=== PATIENT | female | born 1975 | race Two or more races ===

== ENCOUNTER 2017-05-06 10:34 | Day surgery (SDC) | payer OTHER ==
[2017-05-05 15:12] VITALS: BMI 26.2
[2017-05-06] MEDS ORDERED: PROPOFOL 20 ML ONE ×3 (12:35)
[2017-05-06 14:23] VITALS: TEMP 98
[2017-05-06 14:32] VITALS: PULSE 63
[2017-05-06 14:57] VITALS: BP 105/54
--- NOTE | 2017-05-08 14:38 | PATH ---
Surgical Pathology Report Patient Name: CAM MERCADO [facility]. Rec. #: [id number] /Age/Gender: 1975 (Age: 42) / F Account: [id number] Location: [facility]-ENDOSCOPY Taken: 05/06/2017 Received: 05/07/2017 Reported: 05/08/2017 Physicians: Jesús Hernadez M.D. Specimen(s) Received BX DISTAL TRANSVERSE COLON Clinical History Preoperative diagnosis: Change in bowel habits Postoperative diagnosis: Distal transverse colon polyp Final Diagnosis DISTAL TRANSVERSE COLON, POLYP, BIOPSY: HYPERPLASTIC POLYP. Electronically Signed Liliane Castillo M.D. Gross Description Received in formalin, labeled "biopsy distal transverse colon polyp" is a covington, irregular portion of soft tissue measuring 0.4 cm. in greatest dimension. The specimen is submitted in toto in one cassette. /05/07/201705/07/2017
== END 2017-05-06 15:19 | disposition home or self-care (01) ==
LOC: JASU-ENDO 10:34 → JOR 10:34 → JASU-ENDO 15:19
PROVIDERS: ATTEND Internal Medicine Gastroenterology
PROC: 0DBL8ZX Excision of Transverse Colon, Via Natural or Artificial Opening Endoscopic, Diagnostic (ICD-10-PCS; principal; 2017-05-06 11:30)
DX: K63.5 Polyp of colon (principal); K64.8 Other hemorrhoids
CPT/HCPCS: 84703; 88305-TC

== ENCOUNTER → 2018-09-03 | Day surgery (SDC) | payer OTHER ==
--- NOTE | 2018-09-07 13:20 | PATH ---
Surgical Pathology Report Patient Name: CAM MERCADO [facility]. Rec. #: [id number] /Age/Gender: 1975 (Age: 43) / F Account: [id number] Location: [facility] Taken: 09/03/2018 Received: 09/03/2018 Reported: 09/07/2018 Physicians: Gold Kinsey M.D. Specimen(s) Received A: LEFT BREAST SPECIMEN WITH CALCIFICATIONS B: LEFT BREAST SPECIMEN WITHOUT CALCIFICATIONS Clinical History Nonpalpable lesion Mammographic findings: Microcalcification, suspicious Final Diagnosis A. BREAST, LEFT, WITH CALCIFICATIONS, STEREOTACTIC CORE BIOPSY: BENIGN BREAST PARENCHYMA WITH FIBROADENOMATOID CHANGES AND RARE MICROCALCIFICATIONS. B. BREAST, LEFT, WITHOUT CALCIFICATIONS, STEREOTACTIC CORE BIOPSY: BENIGN BREAST PARENCHYMA WITH FIBROADENOMATOID CHANGES. Comment: Multiple deeper levels have been examined. Suggest clinical and radiologic correlation. Electronically Signed Liliane Castillo M.D. Gross Description A. Received in formalin labeled "left breast with calcifications," are 4 covington-yellow, cylindrical portions of fibroadipose tissue ranging from 0.7-2.0 cm in length and averaging 0.3 cm in diameter. The specimens are submitted in toto in one cassette. B. Received in formalin labeled "left breast without calcifications," are 6 covington-yellow, cylindrical portions of fibroadipose tissue ranging from 0.8-2.3 cm in length and averaging 0.3 cm in diameter. The specimens are submitted in toto in 2 cassettes. Time to formalin fixation: 5 minutes Total formalin fixation time: Approximately 7 hours. /09/03/2018 [facility]09/03/2018
== END | disposition home or self-care (01) ==
LOC: FMAMMOTONE 10:31
PROVIDERS: ATTEND Physician Assistant
PROC: 0HBU3ZX Excision of Left Breast, Percutaneous Approach, Diagnostic (ICD-10-PCS; principal; 2018-09-03)
DX: N60.22 Fibroadenosis of left breast (principal); N64.89 Other specified disorders of breast; R92.1 Mammographic calcification found on diagnostic imaging of breast
CPT/HCPCS: 19081; 87899; 88305-TC; A4648

== ENCOUNTER 2021-08-29 09:51 | Day surgery (SDC) | payer OTHER ==
[2021-08-29 10:29] VITALS: BMI 29.3
[2021-08-29 11:31] VITALS: TEMP 97.6
[2021-08-29 11:41] VITALS: BP 126/61; PULSE 83
== END 2021-08-29 11:45 | disposition home or self-care (01) ==
LOC: FASU-ENDO 09:51
PROVIDERS: ATTEND Internal Medicine Gastroenterology
PROC: 0DB68ZX Excision of Stomach, Via Natural or Artificial Opening Endoscopic, Diagnostic (ICD-10-PCS; 2021-08-29)
PROC: 0DB48ZX Excision of Esophagogastric Junction, Via Natural or Artificial Opening Endoscopic, Diagnostic (ICD-10-PCS; 2021-08-29)
PROC: 0DB98ZX Excision of Duodenum, Via Natural or Artificial Opening Endoscopic, Diagnostic (ICD-10-PCS; principal; 2021-08-29 11:10)
DX: K29.50 Unspecified chronic gastritis without bleeding (principal); K21.00 Gastro-esophageal reflux disease with esophagitis, without bleeding; B96.81 Helicobacter pylori [H. pylori] as the cause of diseases classified elsewhere; R10.9 Unspecified abdominal pain
CPT/HCPCS: 84703; 88305-TC

== ENCOUNTER 2024-08-17 07:25 | Emergency (ER) | payer OTHER ==
[2024-08-17 07:50] VITALS: RESP 18; TEMP 98.4; BMI 27.4
[2024-08-17] MEDS ORDERED: MORPHINE SULFATE 2 MG/ML SYRINGE ONE (09:04)
[2024-08-17] MEDS: morphine CARPU-JECT 2 MG/1 ML DISP.SYRIN IM ONE (09:59)
[2024-08-17] MEDS: KETOROLAC TROMETHAMINE 15 MG/ML VIAL IM ONE (10:52)
[2024-08-17] MEDS ORDERED: DIPHTH,PERTUSS(ACELL),TET 0.5 ML DISP.SYRIN IM ONE (10:54)
[2024-08-17] MEDS: DIPHTH,PERTUSS(ACELL),TET 0.5 ML DISP.SYRIN IM ONE (11:14)
[2024-08-17 11:35] VITALS: BP 125/75; PULSE 80
== END 2024-08-17 11:50 | disposition home or self-care (01) ==
LOC: JER 07:25
PROC: 0HQGXZZ Repair Left Hand Skin, External Approach (ICD-10-PCS; principal; 2024-08-17)
PROC: 3E0234Z Introduction of Serum, Toxoid and Vaccine into Muscle, Percutaneous Approach (ICD-10-PCS; 2024-08-17)
PROC: 3E023NZ Introduction of Analgesics, Hypnotics, Sedatives into Muscle, Percutaneous Approach (ICD-10-PCS; 2024-08-17)
DX: S61.215A Laceration without foreign body of left ring finger without damage to nail, initial encounter (principal); S80.212A Abrasion, left knee, initial encounter; M79.674 Pain in right toe(s); Z23 Encounter for immunization; W19.XXXA Unspecified fall, initial encounter
CPT/HCPCS: 12001-25; 73110-TC-LT-FY; 73130-TC-LT-FY; 73552-TC-LT-FY; 73562-TC-LT-FY; 73590-TC-LT-FY; 73630-TC-RT-FY; 90471; 90715; 99284-25